=== PATIENT | male | born 2000 | race Caucasian/White ===

== ENCOUNTER 2024-04-26 01:49 | Emergency (ER) | payer OTHER, SELFPAY ==
[2024-04-26 01:53] VITALS: BP 141/78; PULSE 90; RESP 18; TEMP 36.8; O2SAT 96; BMI 36.6
[2024-04-26 02:19] LABS: Basophils Percent Auto 0.4 % (0-2); Eosinophils Absolute Auto 0.2 X10*3/uL (0.0-0.4); Eosinophils Percent Auto 1.6 % (0-4); Hematocrit 41.4 % (42.0-52.0); Hemoglobin 15.5 g/dl (14.0-18.0); Imm Gran Abs Auto 0.03 X10*3/uL (0.00-0.03); Imm Gran Pct Auto 0.3 % (0.0-0.4); Lymphocytes Absolute Auto 3.4 X10*3/uL (1.2-4.9); Lymphocytes Percent Auto 30.1 % (20-40); MANUAL DIFF FLAG NO; Mean Corpuscular HGB Conc 37.4 g/dl (31.0-36.0); Mean Corpuscular Hemoglobin 30.7 pg (27.0-33.0); Mean Platelet Volume 9.2 fL (9.4-12.4); Monocytes Absolute Auto 0.9 X10*3/uL (0.1-1.2); Monocytes Percent Auto 7.6 % (2-11); Neutrophils Absolute Auto 6.7 x10*3/uL (2.0-8.3); Platelet Count 250 X10*3/uL (160-400); Red Blood Count 5.05 X10*6/uL (4.60-5.80); Red Cell Distribution Width 12.1 % (11.0-16.0); White Blood Count 11.2 X10*3/uL (4.8-10.8)
[2024-04-26 02:34] LABS: Alanine Aminotransferase 49 U/L (0-40); Albumin Level 4.5 g/dL (3.5-5.0); Anion Gap 14 (12-20); Aspartate Amino Transferase 25 U/L (5-37); Bilirubin Total 0.8 mg/dL (0.0-1.0); Blood Urea Nitrogen 16 mg/dL (9-16); C Reactive Protein 1.41 mg/dL (< or = 0.50); Calcium 9.5 mg/dL (8.4-10.2); Carbon Dioxide 24 mmol/L (22-29); Chloride 107 mmol/L (96-108); Creatinine Clr Calc Pharmacy 191.6; Estimated Glomerular Filt Rate > 60; Glucose Random 98 mg/dL (60-115); Sodium 141 mmol/L (135-145); Total Protein 7.8 g/dL (6.5-8.0); Uric Acid 8.5 mg/dL (3.4-7.0)
[2024-04-26 02:54] LABS: Erythrocyte Sedimentation Rate 9 MM/HR (0-15)
[2024-04-26 03:28] LABS: Alkaline Phosphatase 52 U/L (39-117)
[2024-04-26 03:57] VITALS: BP 133/77; PULSE 91; RESP 18; TEMP 36.6; O2SAT 98
--- NOTE | 2024-04-26 07:25 | ED_ITS ---
HPI - Extremity Problem General Chief complaint: Extremity Problem Stated complaint: gout flare up, left foot Time Seen by Provider: 04/26/24 07:19 Source: patient Mode of arrival: ambulatory Limitations: no limitations History of Present Illness HPI Narrative: This is a 23 years old male with history of gout presented to the emergency department complaining of left foot pain stating that he has gout flare. He is on allopurinol and is taking colchicine. Denies any fever chills vomiting. He states that the pain is similar to his prior gout flare. MD Complaint: extremity pain Onset (ago): day(s) (3) Pain Consistency: constant Location: left and other (foot) Quality: burning Radiation: none Relieving factors: nothing Exacerbating factors: nothing Associated symptoms: denies other symptoms Related Data Previous Rx's ?Medication ?Instructions ?Recorded indomethacin 50 mg capsule 50 mg PO TID prn gout #20 caps 04/26/24 oxycodone 5 mg capsule 5 mg PO Q8H PRN pain #12 caps 04/26/24 Allergies Allergy/AdvReac Type Severity Reaction Status Date / Time No Known Allergies Allergy Verified 04/26/24 01:56 Review of Systems 2 Review of Systems: Yes all other systems are reviewed and are negative ENT: Reports system reviewed and no additional complaints, except as documented Respiratory: Respiratory: Reports no additional respiratory complaints Neurologic: Reports system reviewed and no additional complaints, except as documented PMFSH Past Medical History PMFSH Narrative: Gout Social History Social History Advance Directives: No Advance Directives Information Provided: Yes Do you have a plan to hurt others: No Plan Physical Exam 2 Vital Signs: Vital Signs: Last Vital Signs Temp 98.0 F 04/26/24 07:48 Pulse 88 04/26/24 07:48 Resp 20 04/26/24 07:48 BP 139/74 04/26/24 07:48 Pulse Ox 99 04/26/24 07:48 O2 Del Method Room Air 04/26/24 07:48 BMI result Body Mass Index 36.6 He looks well is not toxic-appearing his vital signs are stable he has no fever Const: General: cooperative, healthy appearing, comfortable, no acute distress and well developed Nutritional Appearance: well nourished O rientation/consciousness: patient oriented x3 Limitations: no limitations HEENT: Head: Yes normal to inspection General nose exam: Normal external nose present Face and sinus: Yes normal facial exam Neck: Neck: Yes normal visual inspection and Yes full ROM Chest: Chest palpation & inspection: normal inspection of the chest Resp: Effort & Inspection: normal respiratory effort Auscultation: clear to auscultation bilaterally Cardio: Jugular venous distension: no JVD Rate: regular rate Rhythm: r egular rhythm GI: Inspection: Yes normal to inspection Palpation (GI): Soft to palpation Skin: General skin exam: no rashes or lesions noted and elasticity normal Neuro: General: patient oriented x3 Extrem: Other: On examination of the left foot he has good perfusion he has tenderness in the metatarsal phalangeal joint of the 1st toe he has some swelling in the midfoot. General: Yes normal to inspection Medications Administered Discontinued Medications Generic Name Dose Route Start Last Admin Trade Name Freq PRN Reason Stop Dose Admin Indomethacin 50 mg 04/26/24 07:24 04/26/24 07:43 Indomethacin 25 Mg Capsule PO 04/26/24 07:25 50 mg ONCE ONE Administration Oxycodone HCl 5 mg 04/26/24 07:24 04/26/24 07:43 Oxycodone Hcl Immed Release 5 Mg Tablet PO 04/26/24 07:25 5 mg ONCE ONE Administration Medical Decision Making Medical Decision Making [facility] Narrative: This is a patient with a history of gout presented with atraumatic left foot pain he has pain is similar to prior gout. He is already on colchicine issue stopped with a yellow hue renal during the flare. We will add Indocin Differential Diagnosis Differential Diagnoses: The differential diagnosis associated with the presentation includes Gout/unlikely cellulitis he has no fever/unlikely fracture he has no trauma Admission/Observation Consideration of admission/observation: Escalation of care including admission/observation considered Lab Data [facility] Lab Attestation statement: I reviewed the patient's lab results. 04/26/24 02:15 04/26/24 02:15 Labs: Lab Results 04/26/24 Range/Units 02:15 WBC 11.2 H (4.8-10.8) X10*3/uL RBC 5.05 (4.60-5.80) X10*6/uL Hgb 15.5 (14.0-18.0) g/dl Hct 41.4 L (42.0-52.0) % MCV 82.0 (80.0-98.0) fL MCH 30.7 (27.0-33.0) pg MCHC 37.4 H (31.0-36.0) g/dl RDW 12.1 (11.0-16.0) % Plt Count 250 (160-400) X10*3/uL MPV 9.2 L (9.4-12.4) fL Immature Gran % (Auto) 0.3 (0.0-0.4) % Neut % (Auto) 60.0 (45-73) % Lymph % (Auto) 30.1 (20-40) % [place] % (Auto) 7.6 (2-11) % Eos % (Auto) 1.6 (0-4) % Baso % (Auto) 0.4 (0-2) % Lymph # (Auto) 3.4 (1.2-4.9) X10*3/uL [place] # (Auto) 0.9 (0.1-1.2) X10*3/uL Eos # (Auto) 0.2 (0.0-0.4) X10*3/uL Baso # (Auto) 0.0 (0.0-0.2) X10*3/uL Abs Immat Gran (auto) 0.03 (0.00-0.03) X10*3/uL Absolute Neuts (auto) 6.7 (2.0-8.3) x10*3/uL Absolute Nucleated RBC 0.000 (0.0-0.012) X10*3/uL Nucleated RBC % (auto) 0.0 (0.0-0.2) /100WBC ESR 9 (0-15) MM/HR Sodium 141 (135-145) mmol/L Potassium 4.0 (3.3-5.1) mmol/L Chloride 107 (96-108) mmol/L Carbon Dioxide 24 (22-29) mmol/L Anion Gap 14 (12-20) BUN 16 (9-16) mg/dL Creatinine 0.81 (0.5-1.4) mg/dL Estim Creat Clear Calc 191.6 Estimated GFR > 60 Random Glucose 98 (60-115) mg/dL Uric Acid 8.5 H (3.4-7.0) mg/dL Calcium 9.5 (8.4-10.2) mg/dL Total Bilirubin 0.8 (0.0-1.0) mg/dL AST 25 (5-37) U/L ALT 49 H (0-40) U/L Alkaline Phosphatase 52 (39-117) U/L C-Reactive Protein 1.41 H (< or = 0.50) mg/dL Total Protein 7.8 (6.5-8.0) g/dL Albumin 4.5 (3.5-5.0) g/dL Independent Historian Clinical information obtained from an independent historian. History obtained from or confirmed by: Other (significative other) Discharge Plan Discharge Clinical Impression: [place] Gout Qualifiers: Gout site: foot Gout etiology: unspecified cause Chronicity: acute Laterality: left Qualified Code(s): M10.9 - Gout, unspecified Patient Disposition: Home, Self-Care Instructions: Low Purine Diet (ED), Gout (ED) Additional Instructions: Rescue foot, we sent a prescription for you for Indocin to be taken 3 times a day as needed and a prescription for oxycodone to be taken as needed as well. Hold the allopurinol during the flare. Continue the colchicine as well Prescriptions: New indomethacin 50 mg capsule 50 mg PO TID Qty: 20 0RF Rx Instructions: administer with food or milk oxycodone 5 mg capsule 5 mg PO Q8H PRN (Reason: pain) Qty: 12 0RF Rx Instructions: Partial Fill upon patient request. Referrals: Physician,None [Primary Care Provider] - 2 days Interventions: ED Discharge Assessment Last Done: 04/26/24 07:48 Discharge Date/Time: 04/26/24 07:49 Print Language: Danish
[2024-04-26] MEDS: Indomethacin 25 MG CAPSULE 50 MG PO (07:43)
[2024-04-26] MEDS: oxyCODONE HCl Immed Release 5 MG TABLET PO (07:43)
[2024-04-26 07:48] VITALS: BP 139/74; PULSE 88; RESP 20; TEMP 36.7; O2SAT 99
== END 2024-04-26 07:49 | disposition home or self-care (01) ==
PROVIDERS: Emergency Provider Emergency Medicine
DX: M10.072 Idiopathic gout, left ankle and foot (principal); Z79.899 Other long term (current) drug therapy
CPT/HCPCS: 36415; 80053; 84550; 85025; 85652; 86140; 99283